=== PATIENT | male | born 1975 | race Caucasian/White ===

== ENCOUNTER 2020-07-28 05:48 | Emergency (ER) | payer BC ==
[2020-07-28] MEDS ORDERED: cefTRIAXone\\ROCEPHIN 1 GM VIAL ONE (06:38)
[2020-07-28] MEDS ORDERED: Lidocaine 1% PF 5 ML VIAL ONE (06:39)
== END 2020-07-28 06:55 | disposition home or self-care (01) ==
LOC: ERS 05:48
DX: K02.9 Dental caries, unspecified (principal); I10 Essential (primary) hypertension; F17.220 Nicotine dependence, chewing tobacco, uncomplicated; Z79.899 Other long term (current) drug therapy
CPT/HCPCS: 96372; 99282; J0696